=== PATIENT | female | born 1995 | race Caucasian/White ===

== ENCOUNTER 2021-02-21 13:44 | Emergency (ER) | payer OTHER ==
[~2021-02-21] VITALS: Ht 149.9 cm; Wt 99.8 kg
[2021-02-21] MEDS ORDERED: MOBIC7.5 MG PO (16:09)
[2021-02-21 16:22] VITALS: BP 114/83
--- NOTE | 2021-02-23 07:50 | EKG ---
[address] [address] ELECTROCARDIOGRAM REPORT Name: ALMA ALFORD Room #: DEP DEBI Miranda#: [id number] Admission: 02/21/21 Attend Phys: Discharge: 02/21/21 Date of : [birth year] Report #: [id number] [facility] Test Date: 2021-02-21 Test Time: 13:50:13 Pat Name: ALMA ALFORD Department: Room: Gender: F [employer] Coordinator: UNKNOWN : 1995 Requested By: Hair Garrido Order Number: [id number] MD: Brandon John Measurements Intervals [place] Rate: 71 P: 13 [place]: 139 QRS: 44 QRSD: 79 T: 51 QT: 357 QTc: 388 Interpretive Statements Sinus arrhythmia Baseline wander in lead(s) V5,V6 No previous ECG available for comparison Electronically Signed On 02-23-2021 7:50:27 CDT by Brandon John [email or web address] <ELECTRONICALLY SIGNED> By: Brandon John MD, [facility] 02/23/21 0750 1350 1350 Brandon John MD, FACC /EPI
== END 2021-02-21 16:22 | disposition home or self-care (01) ==
LOC: ER 13:44
DX: M94.0 Chondrocostal junction syndrome [Tietze] (principal); R07.81 Pleurodynia